=== PATIENT | male | born 1960 | race Caucasian/White ===

== ENCOUNTER 2020-12-28 09:09 | Outpatient (REF) | payer OTHER, SELFPAY ==
[2020-12-28 10:11] LABS: COVID-19 Test Negative (Negative)
== END 2020-12-28 09:10 | disposition home or self-care (01) ==
LOC: HO.LAB 09:09
PROVIDERS: Visit Provider Family Medicine
DX: R05 Cough (principal); Z20.822 Contact with and (suspected) exposure to COVID-19
CPT/HCPCS: 36415; 87635